=== PATIENT | female | born 1945 | race Caucasian/White ===

== ENCOUNTER 2021-11-03 10:14 | Day surgery (SDC) | payer MEDICARE, OTHER ==
[~2021-11-03 10:14] MED LIST: Lactated Ringers 1,000 ML IV SCH
[2021-11-03] MEDS ORDERED: Propofol 200 MG/20 ML SDV ONE (10:51)
== END 2021-11-03 13:15 | disposition home or self-care (01) ==
LOC: VM.SDS 10:14
PROVIDERS: ATTEND Family Medicine
DX: Z12.11 Encounter for screening for malignant neoplasm of colon (principal); D12.6 Benign neoplasm of colon, unspecified; I10 Essential (primary) hypertension; K21.9 Gastro-esophageal reflux disease without esophagitis; M81.0 Age-related osteoporosis without current pathological fracture; Z98.890 Other specified postprocedural states; Z79.83 Long term (current) use of bisphosphonates; Z79.899 Other long term (current) drug therapy; Z90.49 Acquired absence of other specified parts of digestive tract
CPT/HCPCS: 00812; 88305; J2704; J7120